=== PATIENT | male | born 1970 | race African-American/Black ===

== ENCOUNTER → 2024-10-28 | Outpatient (CLI) | payer BC, OTHER ==
--- NOTE | 2024-10-29 06:57 | HMCSR ---
APPROVED REPORT EXAM: Two-dimensional and M-mode echocardiogram with Doppler and color Doppler. INDICATION ICD: G44.019 2D Dimensions RVDd3.9 cmLVEF(%)53.0 (>50%)LVED Vol(simp.)102.0 mL IVSd1.0 (0.7-1.1cm)FS(%)31 %LVES Vol(simp.)46.0 mL LVDd4.0 (3.8-5.6cm)LA (2D)4.6 (1.6-4.0cm)LVEF(%, simp.)55 % PWd1.2 (0.7-1.1cm)Ao Root(2D)3.7 (2.0-3.7cm)LA ESV INDEX (BP)19.16 mL/m2 IVSs1.2 cmLVOT diam2.1 (1.8-2.4cm) LVDs3.0 (2.5-4.0cm) PWs1.0 cm M-Mode Dimensions EPSS0.3 cm LA (MM)4.7 (1.6-4.0cm) Ao Root(MM)2.9 (2.0-3.7cm) Aortic Valve AoV Vmax1.0 m/David Peak GR3.9 mmHgLVOT Vmax1.0 m/s AoV VTI0.2 mAo Mean GR2.5 mmHgLVOT VTI0.23 m IRA (VMAX)3.52 cm2AVA (VTI) 4.6 cm2 Mitral Valve MV E Vmax53.6 cm/sDECEL [id number] ms MV A Vmax53.4 cm/s E/A ratio1.0 TDI E/E' Tuadfj50.8E/E' Lateral7.3 Medial E' Peak V4.98 cm/sLateral E' Peak V7.39 cm/s Pulmonary Valve PV Vmax1.0 m/sPV VTI0.19 mPV Mean GR2.4 mmHg PV Peak GR4.3 mmHg Tricuspid Valve RAP (EST) 3 mmHgRVSP3.0 mmHg Left Ventricle The left ventricle is normal size. There is normal LV segmental wall motion. There is normal left rakesh tricular wall thickness. LVEF is 55-60%. Indeterminate diastolic dysfunction. Right Ventricle The right ventricle is normal size. The right ventricular systolic function is normal. Atria The left atrium size is normal. The right atrium size is normal. Aortic Valve The aortic valve is normal in structure. No aortic regurgitation is present. There is no aortic valvu lar stenosis. Mitral Valve The mitral valve is normal in structure. There is no mitral valve regurgitation noted. There is no mi tral valve stenosis. Tricuspid Valve The tricuspid valve is normal in structure. There is no tricuspid valve regurgitation noted. Pulmonic Valve The pulmonary valve is normal in structure. There is trace of pulmonic valvular regurgitation. Great Vessels The aortic root is normal in size. The IVC is normal in size and collapses >50% with inspiration. Pericardium There is no pericardial effusion. Other Information Quality : Adequate Conclusion LVEF is 55-60%.
== END | disposition home or self-care (01) ==
LOC: RAH 13:56
PROVIDERS: ATTEND Student in an Organized Health Care Education/Training Program
DX: G44.019 Episodic cluster headache, not intractable (principal); D45 Polycythemia vera
CPT/HCPCS: 93306